=== PATIENT | female | born 1960 | race Caucasian/White ===

== ENCOUNTER → 2017-01-24 | Outpatient (CLI) | payer MEDICARE | LOC: KOH-I 14:30 | DX: L97.529 Non-pressure chronic ulcer of other part of left foot with unspecified severity (principal); M20.12 Hallux valgus (acquired), left foot; M19.072 Primary osteoarthritis, left ankle and foot | CPT/HCPCS: 73718 ==

== ENCOUNTER → 2017-05-09 | Outpatient (CLI) | payer MEDICARE | LOC: OPSV 12:55 | DX: E11.42 Type 2 diabetes mellitus with diabetic polyneuropathy (principal); E11.51 Type 2 diabetes mellitus with diabetic peripheral angiopathy without gangrene; L97.522 Non-pressure chronic ulcer of other part of left foot with fat layer exposed | CPT/HCPCS: G0463 ==

== ENCOUNTER → 2021-04-11 | Outpatient (CLI) | payer MEDICARE ==
[~2021-04-11] MED LIST: ARICEPT5 MG PO; ATIVAN 1MG TABLE1 MG PO; B12 ACTIVE1000 MCG PO; BACTROBAN OINT22 GM EXT; BUPROPION HCL150 M1 PO; CARVEDILOL6.25 MG PO; CLOBETASOL 0.0560 G1 TP; CYCLOBENZAPRINE10 MG PO; DULERA 100 MCG8.8 GM INH; FLOVENT DISKUS50 MCG INH; FUROSEMIDE40 MG PO; GABAPENTIN800 MG PO; GLUCOPHAGE 500500 MG PO; K-DUR TAB 10 M10 MEQ PO; LEVEMIR FL100 UNIT/1 SQ; LIPITOR40 MG PO; LISINOPRIL20 MG PO; NOVOLOG FL100 UNIT/1 SQ; PEPCID40 MG PO; SULINDAC200 MG PO; SYNTHROID75 MCG PO; TRULICITY1.5 MG/0.5 SQ; VENTOLIN/PROVE0.5 ML INH; VITAMIN D21250 MCG PO
== END ==
LOC: KOH-I 13:30
DX: F17.210 Nicotine dependence, cigarettes, uncomplicated (principal); R91.8 Other nonspecific abnormal finding of lung field
CPT/HCPCS: 71271